=== PATIENT | male | born 1965 | race Caucasian/White ===

== ENCOUNTER 2021-08-08 08:14 | Emergency (ER) | payer OTHER ==
[~2021-08-08] VITALS: Ht 188 cm; Wt 127.0 kg
[2021-08-08] MEDS ORDERED: ZOCOR20 MG PO (08:58)
[2021-08-08] MEDS ORDERED: METF500 PO (08:59)
[2021-08-08] MEDS ORDERED: TRAM50 PO ×2 (08:59)
[2021-08-08] MEDS ORDERED: IBUP800 PO (09:00)
[2021-08-08] MEDS ORDERED: MODA200 PO (09:00)
[2021-08-08] MEDS ORDERED: LEVSOD75 PO (09:00)
[2021-08-08] MEDS ORDERED: SERT100 PO (09:01)
[2021-08-08] MEDS ORDERED: PREG100 PO (09:01)
[2021-08-08] MEDS ORDERED: [UNRECOGNIZED DRUG - OTHER] PO (09:02)
[2021-08-08] MEDS ORDERED: B-121000 MC3 PO (09:03)
[2021-08-08] MEDS ORDERED: FISH OIL 1,2001 EAC4 PO (09:03)
[2021-08-08] MEDS ORDERED: HYDPAM50 PO (09:03)
[2021-08-08] MEDS ORDERED: TAMS.4ER PO (09:04)
[2021-08-08] MEDS ORDERED: ALBU90OI INH (09:04)
[2021-08-08] MEDS ORDERED: MELA3 PO (09:04)
[2021-08-08] MEDS ORDERED: MULVITA PO (09:05)
[2021-08-08] MEDS ORDERED: B-1100 M1 PO (09:06)
[2021-08-08 09:37] LABS: BASOPHILS ABSOLUTE AUTO 0.01 K/mm3 (0.00-0.23); BASOPHILS PERCENT AUTO 0 % (0-2); EOSINOPHILS ABSOLUTE AUTO 0.07 K/mm3 (0.00-0.68); EOSINOPHILS PERCENT AUTO 1 % (0-6); Hematocrit 39.3 % (37.0-53.0); Hemoglobin 12.8 g/dL (13.5-17.5); IMMATURE GRAN ABSOLUTE AUTO 0.01 K/mm3 (0.00-0.10); IMMATURE GRAN PERCENT AUTO 0 % (0-1); LYMPHOCYTES ABSOLUTE AUTO 0.96 K/mm3 (0.84-5.20); LYMPHOCYTES PERCENT AUTO 15 % (21-46); MONOCYTES ABSOLUTE AUTO 0.39 K/mm3 (0.16-1.47); MONOCYTES PERCENT AUTO 6 % (4-13); Mean Corpuscular HGB 26.9 pg (26.0-34.0); Mean Corpuscular HGB Conc 32.6 g/dL (31.5-36.5); Mean Corpuscular Volume 83 fL (80-100); Mean Platelet Volume 10.1 fL (9.1-12.4); NEUTROPHILS ABSOLUTE AUTO 4.97 K/mm3 (1.96-9.15); NEUTROPHILS PERCENT AUTO 77 % (41-73); Platelet Count 234 K/mm3 (150-400); RDW Coefficient Variation 13.5 % (11.7-14.2); Red Blood Cell Count 4.75 M/mm3 (4.30-5.90); White Blood Cell Count 6.41 K/mm3 (4.00-11.30)
[2021-08-08 09:43] LABS: Source, Urine Clean Catch
[2021-08-08 09:48] LABS: Alanine Aminotransfer (ALT/SGP 41 U/L (12-78); Albumin, Blood 3.5 g/dL (3.4-5.0); Alk Phos 74 U/L (50-136); Anion Gap 7 mmol/L (6-16); Aspartate Aminotrans (AST/SGOT 28 U/L (12-37); Bilirubin, Total 0.4 mg/dL (0.1-1.0); Blood Urea Nitrogen 14 mg/dL (8-24); Bun/Creatinine Ratio 17.3 (12.0-20.0); CO2, Blood 27 mmol/L (21-32); Calcium, Blood 8.6 mg/dL (8.5-10.1); Chloride, Blood 107 mmol/L (98-108); Creatinine, Blood 0.81 mg/dL (0.60-1.20); Globulin, Blood 3.5 g/dL (2.2-4.0); Glomerular Filtration Rate >60 (60-); Glucose, Blood 119 mg/dL (70-99); Sodium, Blood 141 mmol/L (136-145)
[2021-08-08 09:51] LABS: Appearance, Urine Clear (Clear); Bilirubin, Urine Neg (Neg); Blood, Urine Neg (Neg); Color, Urine Yellow (P-Yellow); Glucose Qualitative, Urine Neg (Neg); Ketones, Urine Neg (Neg); Leukocyte Esterase, Urine 1+ (Neg); Nitrite, Urine Neg (Neg); Protein, Urine 1+ (Neg); Specific Gravity, Urine 1.015 (1.003-1.022); Urobilinogen, Urine 2+ (Normal)
[2021-08-08 10:09] LABS: Red Blood Cells, Urine 0-2 /hpf (0-2); White Blood Cells, Urine 0-2 /hpf (0-5)
[2021-08-08 10:10] LABS: Bacteria Rare /hpf; Mucus Light (0-Heavy); Squamous Epithelial Cells Rare /hpf (Few)
[2021-08-08] MEDS ORDERED: LIDO700A20 TOP (11:35)
[2021-08-08] MEDS ORDERED: CYCL10 PO (11:35)
== END 2021-08-08 12:10 | disposition home or self-care (01) ==
LOC: ER 08:14
PROVIDERS: Emergency Medicine
DX: M54.50 Low back pain, unspecified (principal); R11.0 Nausea; Z88.8 Allergy status to other drugs, medicaments and biological substances; Z79.84 Long term (current) use of oral hypoglycemic drugs; Z79.899 Other long term (current) drug therapy
CPT/HCPCS: 36415; 74176; 80053; 81001; 85025; 87086; 96374; 99284-25; A9270; J1885; J7030